=== PATIENT | female | born 1950 | race Asian ===

== ENCOUNTER 2018-09-19 07:44 | Day surgery (SDC) | payer OTHER | END 2018-09-19 09:40 | disposition home or self-care (01) | LOC: OR 07:44 | PROC: 3E0T3TZ Introduction of Destructive Agent into Peripheral Nerves and Plexi, Percutaneous Approach (ICD-10-PCS; principal; 2018-09-19) | PROC: BR16YZZ Fluoroscopy of Lumbar Facet Joint(s) using Other Contrast (ICD-10-PCS; 2018-09-19) | DX: M47.817 Spondylosis without myelopathy or radiculopathy, lumbosacral region (principal) | CPT/HCPCS: J2001 ==

== ENCOUNTER 2018-10-10 07:26 | Day surgery (SDC) | payer OTHER | END 2018-10-10 11:05 | disposition home or self-care (01) | LOC: OR 07:26 | PROC: 3E0T3TZ Introduction of Destructive Agent into Peripheral Nerves and Plexi, Percutaneous Approach (ICD-10-PCS; principal; 2018-10-10) | PROC: BR16YZZ Fluoroscopy of Lumbar Facet Joint(s) using Other Contrast (ICD-10-PCS; 2018-10-10) | DX: M47.817 Spondylosis without myelopathy or radiculopathy, lumbosacral region (principal) | CPT/HCPCS: 93005; J2001 ==

== ENCOUNTER 2019-04-30 10:17 | Day surgery (SDC) | payer OTHER | END 2019-04-30 13:59 | disposition home or self-care (01) | LOC: OR 10:17 | PROC: 3E0R33Z Introduction of Anti-inflammatory into Spinal Canal, Percutaneous Approach (ICD-10-PCS; principal; 2019-04-30) | PROC: B01BYZZ Fluoroscopy of Spinal Cord using Other Contrast (ICD-10-PCS; 2019-04-30) | DX: M51.16 Intervertebral disc disorders with radiculopathy, lumbar region (principal) | CPT/HCPCS: J1020 ==

== ENCOUNTER 2019-05-28 09:26 | Day surgery (SDC) | payer OTHER ==
[~2019-05-28] VITALS: Ht 30.5 cm; Wt 0.5 kg
== END 2019-05-28 11:48 | disposition home or self-care (01) ==
LOC: OR 09:26
PROC: 3E0R33Z Introduction of Anti-inflammatory into Spinal Canal, Percutaneous Approach (ICD-10-PCS; principal; 2019-05-28)
PROC: B01BYZZ Fluoroscopy of Spinal Cord using Other Contrast (ICD-10-PCS; 2019-05-28)
DX: M51.16 Intervertebral disc disorders with radiculopathy, lumbar region (principal)
CPT/HCPCS: J1020; J3301